=== PATIENT | male | born 1965 | race Caucasian/White ===

== ENCOUNTER 2017-07-29 16:14 | Emergency (ER) | payer OTHER ==
[~2017-07-29] VITALS: Ht 152.4 cm; Wt 56.8 kg
[2017-07-29 16:14] VITALS: BP 120/81
[2017-07-29] MEDS ORDERED: GABA-282 (16:29)
--- NOTE | 2017-07-29 17:49 | REP ---
RIGHT KNEE, FIVE VIEWS: HISTORY: Pain. There is no acute fracture or dislocation. The joint spaces are normal in appearance. IMPRESSION: There is no acute fracture or dislocation. Signed by Aroldo Grant MD 07/30/2017 08:23 A
[2017-07-29] MEDS ORDERED: IBUP-1022 PO (18:23)
== END 2017-07-29 18:39 | disposition home or self-care (01) ==
LOC: M ED 16:14
DX: M25.561 Pain in right knee (principal); Z72.0 Tobacco use